=== PATIENT | female | born 1990 | race Caucasian/White ===

== ENCOUNTER → 2021-01-05 | Outpatient (CLI) | payer OTHER ==
[~2021-01-05] MED LIST: ADMELOG100 UNIT/1 SC; ALEVE220 MG PO; ALLOPURINOL100 MG PO; BASAGLAR K100 UNIT/1 SC; COZAAR25 MG PO; DULERA 200 MCG8.8 GM INH; IBUPROFEN600 MG PO; KEFLEX CAP 500500 MG PO; LIPITOR TAB 2020 MG PO; LOPRESSOR50 MG PO; NORCO 10-325 T1 EACH PO; OMEPRAZOLE20 MG PO; ONCE DAILY1 EACH PO; PERCOCET 5/325 T1 EA PO; RIZATRIPTAN10 MG PO; SINGULAIR10 MG PO; SPRINTEC 28 DA1 EACH PO; TOPAMAX100 MG PO; VENTOLIN HFA 66.7 GM INH; ZOFRAN ODT 4 MG4 MG SL
== END ==
LOC: EXRD 15:26
DX: M25.571 Pain in right ankle and joints of right foot (principal); M79.671 Pain in right foot
CPT/HCPCS: 73610; 73630

== ENCOUNTER → 2021-10-05 | Outpatient (CLI) | payer OTHER ==
[~2021-10-05] MED LIST changes: +DICLOFENAC TOP; +HUMALOG100 UNIT/3 SC; +LANTUS SOL100 UNIT/1 SC; +LIPITOR10 MG PO; +METOPROLOL TARTRATE PO; +MOBIC15 MG PO; +OCUVITE PO; +PROAIR HFA8.5 GM INH; +PROTONIX40 MG PO; +WOMEN'S DAILY1 EAC1 PO; +[UNRECOGNIZED DRUG - OTHER] PO
[2021-10-05 10:50] LABS: BUN/CREATININE RATIO 25 (0-10)
== END ==
LOC: OPSV2 09:00
PROVIDERS: Anesthesiology
DX: Z01.818 Encounter for other preprocedural examination (principal)
CPT/HCPCS: 36415; 80048; 93005

== ENCOUNTER → 2021-10-06 | Day surgery (SDC) | payer OTHER | END | disposition home or self-care (01) | LOC: OR 06:29 | DX: T84.84XA Pain due to internal orthopedic prosthetic devices, implants and grafts, initial encounter (principal); I10 Essential (primary) hypertension; E11.9 Type 2 diabetes mellitus without complications; E78.5 Hyperlipidemia, unspecified; J45.909 Unspecified asthma, uncomplicated; Z79.4 Long term (current) use of insulin; Z79.899 Other long term (current) drug therapy; Z20.822 Contact with and (suspected) exposure to COVID-19 | CPT/HCPCS: 73070; 76000; 82962; 84703; J0690; J1100; J2001; J2250; J2405; J2704; J3010; J7030; J7120 ==